=== PATIENT | female | born 1950 | race Hispanic/Latino ===

== ENCOUNTER 2020-05-01 07:46 | Outpatient (CLI) | payer MEDICARE, MEDICAID, OTHER ==
[2020-05-01 14:34] LABS: Hemoglobin 13.6 g/dL (12.0-16.0); Mean Corpuscular HGB CONC 32.3 g/dL (32.0-36.0); Mean Corpuscular Hemoglobin 29.7 pg (27.0-31.0); Mean Corpuscular Volume 92.1 fL (78.0-98.0); Mean Platelet Volume 10.1 fL (7.4-10.4); Platelet Count 278 thou/uL (130-400); RBC Distribution Width 12.9 % (11.5-14.5); Red Blood Cell (RBC) Count 4.57 mill/uL (4.20-5.40)
[2020-05-01 14:45] LABS: Anion Gap 16 mmol/L (10-20); BUN (Urea Nitrogen) 20 mg/dL (9.8-20.1); Calc. Creatinine Clearance 0 mL/min (70-130); Calcium 9.7 mg/dL (7.8-10.44); Carbon Dioxide 24 mmol/L (23-31); Chloride 105 mmol/L (98-107); Estimated GFR-MDRD 55; Glucose 105 mg/dL (83-110); Sodium 140 mmol/L (136-145)
[2020-05-02 13:01] LABS: SARS-CoV-2 MS2 Positive; SARS-CoV-2 N Gene Negative; SARS-CoV-2 S Gene Negative; SARS-CoV-2 by NAA Not Detected (NotDetected); SARS-CoV-2 orf1ab Negative
--- NOTE | 2020-05-02 20:52 | EKG ---
Test Reason : Blood Pressure : / mmHG Vent. Rate : 059 BPM Atrial Rate : 059 BPM P-R Int : 164 ms QRS Dur : 096 ms QT Int : 414 ms P-R-T Axes : 010 -30 034 degrees QTc Int : 409 ms Sinus bradycardia Left axis deviation Abnormal ECG No previous ECGs available Confirmed by Ace BAUTISTA ([id number]) on 05/02/2020 8:52:15 PM Referred By: MICHAEL Confirmed By:Ace BAUTISTA
== END 2020-05-01 07:47 | disposition home or self-care (01) ==
LOC: LABBT 07:46
PROVIDERS: ATTEND Neurological Surgery
DX: Z01.818 Encounter for other preprocedural examination (principal); Z20.828 Contact with and (suspected) exposure to other viral communicable diseases; M43.16 Spondylolisthesis, lumbar region
CPT/HCPCS: 80048; 85027; U0003; 87635; 93005; 93010

== ENCOUNTER 2020-05-03 05:38 | Observation (INO) | payer MEDICARE, MEDICAID ==
[2020-05-01 14:46] VITALS: BMI 26.2
[2020-05-03] MEDS ORDERED: Fentanyl 100 MCG/2 ML VIAL ONE ×2 (07:15→09:12)
[2020-05-03] MEDS ORDERED: Promethazine HCl 25 MG/ML VIAL SLOW IVP PRN (08:30)
[2020-05-03] MEDS ORDERED: Promethazine HCl 25 MG/ML VIAL IM PRN ×2 (08:30→09:16)
[2020-05-03] MEDS ORDERED: PACU-Morphine 4MG/ML VIAL SLOW IVP PRN (08:30)
[2020-05-03] MEDS ORDERED: Ondansetron HCl/PF 4 MG/2 ML Vial IVP PRN (08:30)
[2020-05-03] MEDS ORDERED: Morphine Sulfate 2 MG/ML SYRINGE SLOW IVP PRN (08:30)
[2020-05-03] MEDS ORDERED: HYDROmorphone 2 MG/ML VIAL SLOW IVP PRN (08:30)
[2020-05-03] MEDS ORDERED: SUGAMMADEX SODIUM 200 MG/2 ML VIAL ONE (08:31)
[2020-05-03] MEDS ORDERED: HYDROmorphone 2 MG/ML VIAL ONE (09:12)
[2020-05-03] MEDS ORDERED: Morphine 2 MG/ML VIAL SLOW IVP PRN (09:16)
[2020-05-03] MEDS ORDERED: Mag-Al 1200 mg/1200 mg/30 ML UDCUP PO PRN (09:16)
[2020-05-03] MEDS ORDERED: Promethazine 25 MG TAB PO PRN (09:16)
[2020-05-03] MEDS ORDERED: diphenhydrAMINE 25 MG CAP PO PRN (09:16)
[2020-05-03] MEDS ORDERED: Promethazine HCl 12.5 MG SUPP PR PRN (09:16)
[2020-05-03] MEDS ORDERED: Milk Of Magnesia 30 ML UDCUP PO PRN (09:16)
[2020-05-03] MEDS ORDERED: traMADol HCl 50 MG TAB PO PRN ×2 (09:16)
[2020-05-03] MEDS ORDERED: Morphine 4 MG/ML VIAL SLOW IVP PRN (09:16)
[2020-05-03] MEDS ORDERED: Ondansetron PF 4 MG/2 ML Vial IM PRN (09:16)
[2020-05-03] MEDS ORDERED: tiZANidine HCl 4 MG TAB PO PRN (09:16)
[2020-05-03] MEDS ORDERED: diphenhydrAMINE 50 MG/ML VIAL IVP PRN (09:16)
[2020-05-03] MEDS ORDERED: Acetaminophen/Codeine 30-300mg Tablet PO PRN (09:16)
--- NOTE | 2020-05-03 09:30 | OP ---
DATE OF PROCEDURE: 05/03/2020 AUTOMATIC VULCANIZING LEAD OPERATOR: Claudette Reardon PA-C PROCEDURES PERFORMED: L4-L5 laminectomy, posterolateral arthrodesis, pedicle screw instrumentation L4-L5, demineralized bone matrix, and local morselized autograft. DESCRIPTION OF PROCEDURE: The patient was brought to the operating room and intubated. She was rolled in a prone position on gel-filled chest rolls. An incision was made exposing L4 and L5 and the level was confirmed by x-ray. We performed complete L5 and inferior L4 laminectomies completely decompressing the L4-L5 interspace. We next placed pedicle screws at right L4 and right L5 using lateral fluoroscopic guidance. The abdelrahman was secured between the screws, connected by nuts, which were final tightened. The wound was then extensively irrigated. MAC hemostasis was secured. A combination of demineralized bone matrix and local morselized autograft was laid over the lamina and posterolateral surfaces for the purpose of arthrodesis. Vancomycin powder was applied and the wound was then closed in anatomic layers. Job ID: [id number]
[2020-05-03] MEDS ORDERED: Ondansetron PF 4 MG/2 ML Vial ONE (10:33)
[2020-05-03] MEDS ORDERED: PROPOFOL 200 MG/20 ML VIAL ONE (10:33)
[2020-05-03] MEDS ORDERED: Lidocaine 1% PF 5 ML VIAL ONE (10:33)
[2020-05-03] MEDS ORDERED: Rocuronium Bromide 10 MG/ML (10ML VIAL) ONE (10:33)
[2020-05-03] MEDS ORDERED: EPHEDRINE 25 MG/5 ML SYRINGE ONE (10:33)
[2020-05-03] MEDS ORDERED: Dexamethasone 20 MG/5 ML VIAL ONE (10:33)
[2020-05-03] MEDS: Sodium Chloride 0.9% 1,000 ML IV SCH ×2 (11:27→19:33)
[2020-05-03] MEDS: CEFAZOLIN 2 GM in Premix Bag 1 BAG IVPB SCH ×2 (13:24→19:29)
[2020-05-03] MEDS: Gabapentin 300 MG CAP PO SCH ×2 (13:25→19:28)
[2020-05-03] MEDS: Acetaminophen/Codeine 30-300mg Tablet PO PRN ×2 (14:38→19:29)
[2020-05-04] MEDS: Gabapentin 300 MG CAP PO SCH (05:30)
[2020-05-04] MEDS ORDERED: Lisinopril/Hydrochlorothiazide 20 mg/12.5 mg Tablet PO SCH (09:00)
[2020-05-04 12:14] VITALS: BP 106/57; TEMP 98.8
--- NOTE | 2020-05-05 00:08 | DIS ---
DATE OF ADMISSION: 05/03/2020 DATE OF DISCHARGE: 05/04/2020 DISCHARGE SUMMARY: The patient is a 70-year-old female, recently evaluated in our office for back and claudicatory leg pain. She was found to have L4-L5 stenosis and spondylolisthesis. She underwent L4-L5 decompression and fusion on 05/02/2020. Following the surgery, she was transitioned to the Med/Surg floor, where her pain was well controlled with p.o. medications, she is tolerating a regular diet, and she is voiding appropriately. She is ambulating up and down the hallways with the assistance of PT and nursing. She is not having any difficulties with ambulation. On exam this morning, she is awake, alert, in no acute distress. She has free active range of motion in all extremities. No focal motor weakness. Incision is clean, dry, and intact. We will plan to follow up with the patient in 2 weeks and dismiss her to home. I have discussed home care precautions and check [employer] prior to discharge. Job ID: [id number]
== END 2020-05-04 12:43 | disposition home or self-care (01) ==
LOC: SDC 05:38 → SJJU 10:36 → SDC 11:06
PROVIDERS: ADMIT Neurological Surgery; ATTEND Neurological Surgery
PROC: 0SG0071 Fusion of Lumbar Vertebral Joint with Autologous Tissue Substitute, Posterior Approach, Posterior Column, Open Approach (ICD-10-PCS; principal; 2020-05-03)
DX: M43.16 Spondylolisthesis, lumbar region (principal); M48.062 Spinal stenosis, lumbar region with neurogenic claudication; I10 Essential (primary) hypertension; G89.29 Other chronic pain; M54.5 Low back pain; E78.5 Hyperlipidemia, unspecified; I73.9 Peripheral vascular disease, unspecified; Z79.899 Other long term (current) drug therapy
CPT/HCPCS: 20930; 20936; 22612; 22840; 76000; 97116; 97139 ×2; C1713 ×3; C1768; 96365; 96366; G0378; J0690; J1100; J1170; J2405; J2704; J3010; J3370; J3490

== ENCOUNTER 2020-05-17 09:33 | Outpatient (CLI) | payer MEDICARE, MEDICAID ==
--- NOTE | 2020-05-17 09:49 | RAD ---
Exam: 2 views lumbar spine HISTORY: Lumbar spondylolisthesis. Back surgery 2 weeks ago FINDINGS: 5 lumbar type vertebra. There is sacralization of L5. 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 No perihardware lucency Disc space heights are preserved. No vertebral body fracture Spondylolisthesis: 3.1 mm of anterolisthesis of L4 upon L5 Atherosclerosis of the aorta is noted IMPRESSION: Grade 1 anterolisthesis of L4 upon L5. Unilateral right-sided transpedicular screw at L4 and L5.
== END 2020-05-17 09:34 | disposition home or self-care (01) ==
LOC: TBSIIMAG 09:33
PROVIDERS: ATTEND Neurological Surgery
DX: M43.16 Spondylolisthesis, lumbar region (principal); Z98.890 Other specified postprocedural states
CPT/HCPCS: 72100